=== PATIENT | female | born 1945 | race Caucasian/White ===

== ENCOUNTER 2021-06-11 12:25 | Outpatient (CLI) | payer OTHER | END 2021-06-11 12:36 | disposition home or self-care (01) | LOC: RAD 12:25 | PROVIDERS: ATTEND Orthopaedic Surgery | DX: M25.561 Pain in right knee (principal); M25.562 Pain in left knee ==

== ENCOUNTER 2021-09-27 05:40 | Day surgery (SDC) | payer OTHER ==
[~2021-09-27] VITALS: Ht 160 cm; Wt 63.5 kg
[~2021-09-27 05:40] MED LIST: BIOTIN5000 MCG PO; EVISTA60 MG PO; SYNTHROID50 MCG PO; VITAMIN C500 MG PO
[2021-09-27] MEDS ORDERED: MORGIDOX100 MG PO (16:34)
[2021-09-27] MEDS ORDERED: NAPR500T14 PO (16:34)
== END 2021-09-27 21:35 | disposition home or self-care (01) ==
LOC: CIR.AMB 05:40
PROVIDERS: ATTEND Obstetrics & Gynecology
DX: N84.0 Polyp of corpus uteri (principal); Z20.822 Contact with and (suspected) exposure to COVID-19; E03.9 Hypothyroidism, unspecified; M19.90 Unspecified osteoarthritis, unspecified site; M19.09 Primary osteoarthritis, other specified site; Z85.3 Personal history of malignant neoplasm of breast